=== PATIENT | female | born 1945 | race Caucasian/White ===

== ENCOUNTER 2017-07-26 08:55 | Day surgery (SDC) | payer MEDICARE, BC ==
[~2017-07-26 08:55] MED LIST: Lactated Ringers 1,000 ML IV SCH; Lidocaine 1% 0 ML ONE; Lidocaine 1%/Sod Bicarbonate in NS 8.4% 1 ML Syringe IDERM PRN; Propofol 200 MG/20 ML SDV ONE; Sodium Chloride 0.9% 10 ML Syringe FLUSH PRN; fentaNYL 100 MCG/2 ML SDV ONE
--- NOTE | 2017-07-26 09:22 | PCM.PREANE ---
<[place] Orlando - Last Filed: 07/26/17 09:16> Preanesthetic Assessment - Procedure Proposed Procedure: EGD/Colonoscopy - Anesthesia/Transfusion/Family Hx Anesthesia History: Prior Anesthesia Without Reaction Family History of Anesthesia Reaction: No Transfusion History: Prior Transfusion Without Reaction - Review of Systems General: Fatigue (With anemia) Other: Reports: Thyroid Problems - Physical Assessment Vital Signs: Last Vital Signs Temp 36.8 C 07/26/17 09:10 Pulse 70 07/26/17 09:10 Resp 17 07/26/17 09:10 BP 164/65 H 07/26/17 09:10 Pulse Ox 100 07/26/17 09:10 - Allergies Allergies/Adverse Reactions: Allergies Allergy/AdvReac Type Severity Reaction Status Date / Time No Known Allergies Allergy Verified 07/26/17 09:41 PreAnesthesia Questionnaire HEENT History: Reports: Hard of Hearing, Impaired Vision, Other (See Below) Other HEENT History: has bilateral hearing aids and reading glasses Cardiovascular History: Reports: High Cholesterol, Hypertension Respiratory History: Reports: None Gastrointestinal History: Reports: GERD Genitourinary History: Reports: UTI, Recurrent LEATHER COATER History: Reports: None Musculoskeletal History: Reports: None Neurological History: Reports: None Psychiatric History: Reports: None Endocrine/Metabolic History: Reports: Hypothyroidism Hematologic History: Reports: None Immunologic History: Reports: None Oncologic (Cancer) History: Reports: None Dermatologic History: Reports: None - Past Surgical History Head Surgeries/Procedures: Reports: None Cardiovascular Surgical History: Reports: None Respiratory Surgical History: Reports: None GI Surgical History: Reports: None Female Surgical History: Reports: Hysterectomy Male Surgical History: Reports: None Endocrine Surgical History: Reports: None Neurological Surgical History: Reports: None Musculoskeletal Surgical History: Reports: None Oncologic Surgical History: Reports: None Dermatological Surgical History: Reports: None - SUBSTANCE USE Smoking Status *Q: Former Smoker Recreational Drug Use History: No - HOME MEDS Home Medications: Home Meds Famotidine [Pepcid AC] 20 mg PO TID PRN 07/25/17 [History] Iron Ag,Ps/C/Fa6/B12/Zn/SA/Sto [Niferex Tablet] 1 tab PO BID 07/25/17 [History] Levothyroxine [Synthroid] 100 mcg PO DAILY 07/25/17 [History] Nitrofurantoin Monohyd/M-Cryst [Macrobid 100 mg Capsule] 100 mg PO BID 07/25/17 [History] amLODIPine Besylate [Norvasc] 5 mg PO DAILY 07/25/17 [History] - CURRENT (IN HOUSE) MEDS Current Meds: Current Medications Lactated Ringer's (Ringers, Lactated) 1,000 mls @ 125 mls/hr IV ASDIRECTED ELIU Stop: 07/26/17 23:00 Lidocaine/Sodium Bicarbonate (Buffered Lidocaine 1% In Ns 8.4%) 0.25 ml IDERM ONETIME PRN PRN Reason: Prior to IV Start Stop: 07/26/17 18:00 Sodium Chloride (Saline Flush) 10 ml FLUSH ASDIRECTED PRN PRN Reason: Keep Vein Open Stop: 07/26/17 18:00 Discontinued Medications Fentanyl (Sublimaze) Confirm Administered Dose 100 mcg .ROUTE .STK-MED ONE Stop: 07/26/17 07:31 Lidocaine HCl (Xylocaine-Mpf 1%) Confirm Administered Dose 4 mls @ as directed .ROUTE .STK-MED ONE Stop: 07/26/17 07:32 Propofol (Diprivan 20 Ml) Confirm Administered Dose 400 mg .ROUTE .STK-MED ONE Stop: 07/26/17 07:30 <eMg Uribe - Last Filed: 07/26/17 10:00> Preanesthetic Assessment - Anesthesia/Transfusion/Family Hx Anesthesia History: Prior Anesthesia Without Reaction Family History of Anesthesia Reaction: No Transfusion History: Prior Transfusion Without Reaction Intubation History: Unknown - Review of Systems General: No Symptoms Pulmonary: No Symptoms (Quit smoking in 1969) Cardiovascular: No Symptoms (HTN), Dyspnea on Exertion (only with anemia) Gastrointestinal: No Symptoms (GERD occasionly with diet.) Neurological: No Symptoms Other: Reports: Easy Bruising, Thyroid Problems (hypothyroid), Anxiety (only with medical treatment) - Physical Assessment NPO Status Date: 07/26/17 NPO Status Time: 06:00 (sip of water, otherwise nothing since 07/24/17) Pulse: 70 O2 Sat by Pulse Oximetry: 100 Respiratory Rate: 17 Blood Pressure: 164/65 Temperature: 36.8 C Height: 1.57 m Weight: 64 kg ASA Class: 3 Mental Status: Alert & Oriented x3 Airway Class: Mallampati = 2 Dentition: Reports: Normal Dentition, Missing Tooth/Teeth, Caries Thyro-Mental Finger Breadths: 3 Mouth Opening Finger Breadths: 3 ROM/Head Extension: Full Lungs: Clear to Auscultation, Normal Respiratory Effort Cardiovascular: Regular Rate, Regular Rhythm, No Murmurs - Imaging/EKG Impressions: Echocardiogram: EF 65-70% - Anesthesia Plan Pre-Op Medication Ordered: None - Acknowledgements Anesthesia Type Planned: MAC Pt an Appropriate Candidate for the Planned Anesthesia: Yes Alternatives and Risks of Anesthesia Discussed w Pt/Guardian: Yes Pt/Guardian Understands and Agrees with Anesthesia Plan: Yes
[2017-07-26] MEDS ORDERED: Lidocaine 1% 6 ML ONE (10:05)
[2017-07-26] MEDS ORDERED: Propofol 200 MG/20 ML SDV ONE ×2 (10:06→11:06)
[2017-07-26] MEDS ORDERED: fentaNYL 100 MCG/2 ML SDV ONE (10:06)
[2017-07-26] MEDS ORDERED: Lactated Ringers 1,000 ML ONE (10:49)
--- NOTE | 2017-07-26 11:16 | PCM.OPNOTE ---
- General Post-Op/Procedure Note Date of Surgery/Procedure: 07/26/17 Operative Procedure(s): egd with bx and colonoscopy to 25 cm Pre Op Diagnosis: anemia Post-Op Diagnosis: Same Anesthesia Technique: MAC Primary Surgeon: Emeka Sharma EBL in mLs: 0 Complications: None Condition: Good
--- NOTE | 2017-07-26 11:22 | PCM48HPAN ---
Post Anesthesia Note - EVALUATION WITHIN 48HRS OF ANESTHETIC Vital Signs in Normal Range: Yes Patient Participated in Evaluation: Yes Respiratory Function Stable: Yes Airway Patent: Yes Cardiovascular Function Stable: Yes Hydration Status Stable: Yes Pain Control Satisfactory: Yes Nausea and Vomiting Control Satisfactory: Yes Mental Status Recovered: Yes
--- NOTE | 2017-07-26 13:47 | OR ---
DATE OF OPERATION: 07/26/2017 SURGEON: Emeka Sharma MD PREOPERATIVE DIAGNOSIS: Anemia. POSTOPERATIVE DIAGNOSIS: Anemia. OPERATION PERFORMED: Colonoscopy to 25 cm. FINDINGS: Area of diverticulosis and very acute bend in the colon that would not allow passage of the scope beyond 25 cm, and suspected it is related to her pelvic surgery. ANESTHESIA: Procedure done under IV sedation. DESCRIPTION OF PROCEDURE: The patient having been taken to the endoscopy room, placed in a supine position, connected to monitoring equipment, and given IV sedation for upper GI endoscopy, this was continued for colonoscopy. She was placed in the left lateral position. Perianal area was inspected and was normal. Rectal exam showed good sphincter tone. A video Olympus colonoscope was then introduced into the rectum and threaded up to 25 cm, where an acute bend in the colon as described above was encountered. I was unable to go beyond that for technical reasons. There were some scattered diverticula in this area. Prep was excellent. [place] cleansing score grade A and the scope was slowly withdrawn showing the sigmoid colon and the rectum free of any disease outside of the diverticulum. The patient tolerated the procedure and sent to recovery room in a stable condition. ESTIMATED BLOOD LOSS: MMODAL /[id number]
--- NOTE | 2017-07-26 13:47 | OR ---
DATE OF OPERATION: 07/26/2017 SURGEON: Emeka Sharma MD PREOPERATIVE DIAGNOSIS: Anemia. POSTOPERATIVE DIAGNOSIS: Anemia. OPERATION PERFORMED: Esophagogastroduodenoscopy with biopsy. FINDINGS: Superficial inflammation in the antrum. A large fixed hiatal hernia with GE junction located at 33 cm with mild inflammation at the indentation of the diaphragm at the hiatal hernia pouch. Second portion of the duodenum, duodenal bulb, pyloric channel was unremarkable. GE junction located at 33 cm, did not show any acute process. ANESTHESIA: IV sedation. DESCRIPTION OF PROCEDURE: The patient was taken to the endoscopy room, placed in a supine position, connected to monitoring equipment, given IV sedation, placed in left lateral position. Bite block was inserted and video Olympus gastroscope placed in the posterior oropharynx, under direct vision threaded past the cricopharyngeus, down the esophagus, into the stomach. Stomach was insufflated and the scope passed through the pylorus to the second portion of the duodenum. Second portion of the duodenum and duodenal bulb was normal as was the pyloric channel. Antrum showed some thinning of the mucosa with some erythematous striations of which these were biopsied. The body was unremarkable. J-manoeuver showed a large fixed hiatal hernia and the scope withdrawn. The hiatal hernia pouch showed some redness in some areas adjacent to the indentation of the diaphragm. The GE junction was located at 33 cm, did not show any acute process. Rest of the esophagus was normal. The patient tolerated the procedure and I will continue IV sedation for colonoscopy. ESTIMATED BLOOD LOSS: MMODAL /[id number]
== END 2017-07-26 12:10 | disposition home or self-care (01) ==
LOC: JD.SDS 08:55
PROVIDERS: ATTEND Surgery
DX: D50.9 Iron deficiency anemia, unspecified (principal); K29.50 Unspecified chronic gastritis without bleeding; K44.9 Diaphragmatic hernia without obstruction or gangrene; B96.81 Helicobacter pylori [H. pylori] as the cause of diseases classified elsewhere; I10 Essential (primary) hypertension; E78.00 Pure hypercholesterolemia, unspecified; E03.9 Hypothyroidism, unspecified; K21.9 Gastro-esophageal reflux disease without esophagitis; Z87.891 Personal history of nicotine dependence
CPT/HCPCS: 43239; 45330; J2001; J3010; J7120; 00813; J2704